=== PATIENT | male | born 1955 ===

== ENCOUNTER 2018-11-10 11:30 | Emergency (ER) | payer SELFPAY ==
[2018-11-10] MEDS ORDERED: Oxycodone/Acetaminophen 5/325 mg Tab PO STA (11:59)
--- NOTE | 2018-11-10 12:02 | ED PDOC ---
HPI: Back Time Seen by Provider: 11/10/18 11:48 Chief Complaint (Nursing): Back Pain History Per: Patient Onset/Duration Of Symptoms: Days (7) Current Symptoms Are (Timing): Still Present Quality Of Discomfort: Aching Severity: Moderate Pain Scale Rating Of: 5 Previous Symptoms: Back Pain Associated Symptoms: None Exacerbating Factor(s): Movement Additional Complaint(s): Left sided low back pain radaiting down back of left leg x 1 week. Pt has h/o chronic low back pain but has exacerbations intermittently. Denies weakness or parasthesias. No new injury. No fever or urinary sxs. No incontinence. Past Medical History Vital Signs: Last Vital Signs Temp 97.9 F 11/10/18 11:45 Pulse 81 11/10/18 11:45 Resp 18 11/10/18 11:45 BP 173/67 H 11/10/18 11:45 Pulse Ox 97 11/10/18 11:45 - Medical History PMH: Asthma, Back Problems - Family History Family History: States: Unknown Family Hx - Home Medications Home Medications: Ambulatory Orders Medication Instructions Recorded Cyclobenzaprine [Cyclobenzaprine 10 mg PO TID #20 tab 09/16/16 HCl] Ibuprofen [Motrin] 600 mg PO Q6 #20 tab 09/16/16 oxyCODONE/Acetaminophen [Percocet 1 ea PO Q6 PRN #10 tab 09/16/16 5/325 mg Tab] diaZEpam [Valium] 5 mg PO Q6H PRN #15 tab 09/20/16 predniSONE [predniSONE Tab] 20 mg PO DAILY #12 tab 09/20/16 traMADol [Ultram] 50 mg PO Q8 #10 tab 11/10/18 - Allergies Allergies/Adverse Reactions: Allergies Allergy/AdvReac Type Severity Reaction Status Date / Time No Known Allergies Allergy Verified 09/16/16 19:14 Review of Systems Constitutional: Negative for: Fever Gastrointestinal: Negative for: Abdominal Pain Genitourinary Male: Negative for: Dysuria, Frequency, Incontinence Musculoskeletal: Positive for: Back Pain, Leg Pain Neurological: Negative for: Weakness, Numbness Physical Exam - Physical Exam Appears: Positive for: Non-toxic, Uncomfortable Skin: Positive for: Normal Color, Warm, DRY Gastrointestinal/Abdominal: Positive for: Bowel Sounds, Soft. Negative for: Tenderness Back: Positive for: Normal Inspection, Vertebral Tenderness, Other (Left parasacral spasm and tenderness. Pain straight leg raise L>R) Neurologic/Psych: Positive for: Alert, Oriented. Negative for: Motor/Sensory Deficits - ECG O2 Sat by Pulse Oximetry: 97 - Progress Re-evaluation Time: 15:04 Condition: Improved Disposition - Clinical Impression Clinical Impression: Back pain, Radiculopathy - Patient ED Disposition Is Patient to be Admitted: No Counseled Patient/Family Regarding: Studies Performed, Diagnosis, Need For Followup, Rx Given - Disposition Referrals: Rohit Crandall III, MD [Staff Provider] - Disposition: Routine/Home Disposition Time: 15:05 Condition: FAIR Prescriptions: traMADol [Ultram] 50 mg PO Q8 #10 tab Instructions: Radiculopathy, Osteoarthritis (DC) Forms: [facility] (Sinhala)
--- NOTE | 2018-11-10 13:06 | RAD ---
Date of service: 11/10/2018 PROCEDURE: Radiographs of the Lumbar Spine. HISTORY: Back pain COMPARISON: No prior. FINDINGS: BONES: Normal alignment. No listhesis. No fracture. Non marginal osteophyte formation identified lower lumbar spine. Partial sacralization of the last lumbar element noted DISC SPACES: Unremarkable. OTHER FINDINGS: None. IMPRESSION: No significant/acute findings.
[2018-11-10 15:13] VITALS: BP 152/68; PULSE 83; RESP 17; TEMP 98; O2SAT 100
== END 2018-11-10 15:10 | disposition home or self-care (01) ==
LOC: H.ER 11:30
DX: M54.16 Radiculopathy, lumbar region (principal); J45.909 Unspecified asthma, uncomplicated
CPT/HCPCS: 72100; 96372; 99283; J1885; J2270